=== PATIENT | male | born 1970 | race Caucasian/White ===

== ENCOUNTER 2025-02-11 03:01 | Observation (INO) ==
[2025-02-11] MEDS: SODIUM CHLORIDE 0.9% 1,000 ML IV ONE (03:13)
[2025-02-11] MEDS: NITROGLYCERIN 2% OINTMENT 30GM TUBE EXT ONE (03:21)
[2025-02-11 03:40] LABS: Hematocrit (blood only) 47.3 % (42.0-52.0); Hemoglobin 16.3 g/dL (14.0-18.0); Immature Granulocytes # (auto) 0.09 K/uL (0.01-0.20); Immature Granulocytes % (auto) 0.6 %; Mean Corpuscular Hemoglobin 33.1 pg (25.0-34.0); Mean Corpuscular Volume 96.1 fL (80.0-100.0); Platelet Count 182 K/uL (130-400); RDW Standard Deviation 50.8 fL (36.4-46.3); Red Blood Count 4.92 M/uL (4.70-6.10); White Blood Count 15.07 K/ul (4.8-10.8)
[2025-02-11 04:06] LABS: Anion Gap 10.0 (3-11); Carbon Dioxide 22.0 mmol/L (21-32); Chloride 102.0 mmol/L (98-107); Creatinine Clr Calc Pharmacy 68.4 ml/min; Glucose 114.0 mg/dl (70-99(Fasting)); Lipase 25.0 U/L (11-82); Magnesium 1.9 mg/dl (1.7-2.4); Potassium 3.9 mmol/L (3.5-5.1); Sodium 134.0 mmol/L (136-145)
[2025-02-11 04:09] LABS: Alanine Aminotransferase 14.0 U/L (7-52); Albumin Level 4.1 gm/dl (3.4-5.0); Alkaline Phosphatase 145.0 U/L (34-104); Blood Urea Nitrogen 12.0 mg/dl (6-23); Calcium 8.8 mg/dl (8.6-10.3)
[2025-02-11 04:14] LABS: Bilirubin,Total 0.4 mg/dl (0.2-1.0)
[2025-02-11 04:22] LABS: Albumin Globulin Ratio 1.2 (0.9-2); Globulin 3.5 gm/dl (2.5-4.0); Total Protein 7.6 gm/dl (6.0-8.3)
--- NOTE | 2025-02-11 05:08 | History & Physical Report ---
Date of Service February 11, 2025 Assessment & Plan (1) Syncope and collapse: Plan: 54-year-old male unassigned patient who does not go to doctors regularly presents with syncope and chronic chest pains. Patient lives around 35 miles from [place]. [place] he was in a strip club. States he drank about a quarter of beer. When he tried to go to bathroom he felt very hot and sweaty. Next thing he remembered , he was lying on the floor. It took some time for him to get up. Came to the ER. Currently resting comfortably and hemodynamically stable. Patient states he has chronic chest pains. He says he has chest pains going on for last 13 years. Today in the ER the nitro helped his chest pain. Says used to smoke 5 packs of cigarettes daily. Currently smoking 1 pack of cigars daily. Says he drinks alcohol only on the weekends, couple of beers. He denies any drug use. Has some headache. Vision is okay. No runny nose or sore throat. Has chronic cough. No nausea. No shortness of breath. No abdominal pain. Normal bowel and bladder movements. Denies any biting of the tongue or incontinence during the episode of syncope. Syncope and collapse Chronic chest pains Troponin negative. Chest x-ray okay Has leukocytosis but other labs okay Will follow serial cardiac enzymes, echo Will follow lipid profile and HbA1c levels Monitor on telemetry Consider cardiology for further recommendations Tobacco abuse Counseling DVT prophylaxis SCDs Disposition Telemetry Full code. History of Present Illness Chief Complaint: Syncope and chest pains Primary Care Provider: NO PCP 54-year-old male unassigned patient who does not go to doctors regularly presents with syncope and chronic chest pains. Patient lives around 35 miles from [place]. [place] he was in a strip club. States he drank about a quarter of beer. When he tried to go to bathroom he felt very hot and sweaty. Next thing he remembered , he was lying on the floor. It took some time for him to get up. Came to the ER. Currently resting comfortably and hemodynamically stable. Patient states he has chronic chest pains. He says he has chest pains going on for last 13 years. Today in the ER the nitro helped his chest pain. Says used to smoke 5 packs of cigarettes daily. Currently smoking 1 pack of cigars daily. Says he drinks alcohol only on the weekends, couple of beers. He denies any drug use. Has some headache. Vision is okay. No runny nose or sore throat. Has chronic cough. No nausea. No shortness of breath. No abdominal pain. Normal bowel and bladder movements. Denies any biting of the tongue or incontinence during the episode of syncope. Past medical history. Denies any medical history. Past surgical history. Denies surgeries Social history. Smoking 1 pack of cigarettes daily. Smoking since age of 12. Drinks couple of beers on the weekends. Denies any drug use. Family history. Mother had diabetes. Cancer in the family. He is Allergies Allergy/AdvReac Type Severity Reaction Status Date / Time No Known Allergies Allergy Unverified 12/26/17 06:33 Past Med/Surg History Problem List (Updated 02/11/25 @ 05:49 by Frandy Lennon PA-C) No significant past surgical history Atypical chest pain Syncope and collapse Family History (Updated 12/26/17 @ 06:39 by Zoya Daniel) Other No significant family history Social History (Updated 12/26/17 @ 06:39 by Zoya Daniel) Smoking Status: Current every day smoker Tobacco Type: Cigars Cigarettes Per Day: 1 pack/day; Hx Alcohol Use: Yes Alcohol type: beer Hx Substance Use: No Preferred Language: Yoruba Communication Ability: Effective Discharge Rn Required: No Beliefs That Will Affect Care: None Current Living Situation: Alone Other Information That Helps Us Care for You: No Feels Safe at Home: Yes Safety Concerns: Feels Safe At This Time Assistive Devices: None Review of Systems Review of Systems: All systems reviewed & are unremarkable except as noted in HPI & below Physical Exam Physical Exam: General- Not in distress Head- atraumatic Eyes- PERRL. ENT- oropharynx clear Neck- supple, no JVD. Lungs- clear to auscultation no wheezing or crackles Heart- regular rhythm; no murmur, no gallop. Abdomen- normal bowel sounds, soft, nontender, no distension Extremities- no pretibial edema, no erythema seen Neuro- alert, oriented PERRL, no facial palsy; no dysarthria; moves extremities Results & Data Results & Data Vital Signs (Past 12 Hours) Vital Signs Temp Pulse Resp BP Pulse Ox O2 Del Method 02/11/25 04:45 71 15 115/74 95 Room Air 02/11/25 04:15 74 18 117/74 92 Room Air 02/11/25 04:00 77 20 120/72 93 Room Air 02/11/25 03:45 80 23 126/77 94 Room Air 02/11/25 03:45 81 22 126/77 93 Room Air 02/11/25 03:21 85 23 123/76 93 Room Air 02/11/25 03:18 86 21 122/72 92 Room Air 02/11/25 03:12 Room Air 02/11/25 03:09 91 H 02/11/25 03:08 36.6 C 91 H 16 110/89 100 Room Air Diagnostic Findings Laboratory Results WBC 15.07 K/ul (4.8-10.8) H 02/11/25 03:12 RBC 4.92 M/uL (4.70-6.10) 02/11/25 03:12 Hgb 16.3 g/dL (14.0-18.0) 02/11/25 03:12 Hct 47.3 % (42.0-52.0) 02/11/25 03:12 MCV 96.1 fL (80.0-100.0) 02/11/25 03:12 MCH 33.1 pg (25.0-34.0) 02/11/25 03:12 MCHC 34.5 g/dL (32.0-36.0) 02/11/25 03:12 RDW Std Deviation 50.8 fL (36.4-46.3) H 02/11/25 03:12 RDW Coeff of Lynette 14.3 % (11.5-14.5) 02/11/25 03:12 Plt Count 182 K/uL (130-400) 02/11/25 03:12 MPV 9.8 fL (9.4-12.4) 02/11/25 03:12 Immature Gran % (Auto) 0.6 % 02/11/25 03:12 Neut % (Auto) 86.4 % 02/11/25 03:12 Lymph % (Auto) 5.2 % 02/11/25 03:12 [place] % (Auto) 7.0 % 02/11/25 03:12 Eos % (Auto) 0.4 % 02/11/25 03:12 Baso % (Auto) 0.4 % 02/11/25 03:12 Neut # (Auto) 13.01 K/uL (1.40-6.50) H 02/11/25 03:12 Lymph # (Auto) 0.79 K/uL (1.20-3.40) L 02/11/25 03:12 [place] # (Auto) 1.06 K/uL (0.11-0.59) H 02/11/25 03:12 Eos # (Auto) 0.06 K/uL (0.00-0.50) 02/11/25 03:12 Baso # (Auto) 0.06 K/uL (0.00-0.20) 02/11/25 03:12 Immature Gran # (Auto) 0.09 K/uL (0.01-0.20) 02/11/25 03:12 Sodium 134 mmol/L (136-145) L 02/11/25 03:12 Potassium 3.9 mmol/L (3.5-5.1) 02/11/25 03:12 Chloride 102 mmol/L (98-107) 02/11/25 03:12 Carbon Dioxide 22 mmol/L (21-32) 02/11/25 03:12 Anion Gap 10 (3-11) 02/11/25 03:12 BUN 12 mg/dl (6-23) 02/11/25 03:12 Creatinine 1.30 mg/dl (0.6-1.4) 02/11/25 03:12 Est Cr Clr Drug Dosing 68.4 ml/min 02/11/25 03:12 eGFR 64.88 02/11/25 03:12 BUN/Creatinine Ratio 9.2 (10-20) L 02/11/25 03:12 Glucose 114 mg/dl (70-99(Fasting)) H 02/11/25 03:12 Calcium 8.8 mg/dl (8.6-10.3) 02/11/25 03:12 Magnesium 1.9 mg/dl (1.7-2.4) 02/11/25 03:12 Total Bilirubin 0.4 mg/dl (0.2-1.0) 02/11/25 03:12 AST 21 U/L (13-39) 02/11/25 03:12 ALT 14 U/L (7-52) 02/11/25 03:12 Alkaline Phosphatase 145 U/L (34-104) H 02/11/25 03:12 Troponin I High Sens 11.5 pg/ml (0-20) 02/11/25 03:12 Total Protein 7.6 gm/dl (6.0-8.3) 02/11/25 03:12 Albumin 4.1 gm/dl (3.4-5.0) 02/11/25 03:12 Globulin 3.5 gm/dl (2.5-4.0) 02/11/25 03:12 Albumin/Globulin Ratio 1.2 (0.9-2) 02/11/25 03:12 Lipase 25 U/L (11-82) 02/11/25 03:12 Ethyl Alcohol mg/dL < 10.0 mg/dl (<10.0) 02/11/25 03:11 Code Status & VTE Plan VTE Prophylaxis Plan VTE Prophylaxis will be ordered: Yes
--- NOTE | 2025-02-11 05:18 | XRay Report ---
EXAM: XR chest 1V portable CLINICAL HISTORY: Chest pain, nonspecific. TECHNIQUE: Radiograph of chest was acquired. COMPARISON: 12/26/2017 06:43:55 [employer]. FINDINGS: The lungs are clear and well-expanded with no pulmonary infiltrate or pleural effusion. The cardiac silhouette is borderline enlarged. Right hilum appears prominent. No acute osseous abnormality. IMPRESSION: 1. Borderline cardiomegaly with prominent right hilar shadows - Interval appearance of cardiomegaly with more prominent right hilar shadow compared to prior- Needs further evaluation with 2D cardiac echogram. Electronically signed by Jimmie Schreiber 02-11-2025 05:17 AM
[2025-02-11 05:29] LABS: Appearance Urine Clear (Clear); Bacteria Urine Automated None Seen (None Seen); Cast Urine Automated 0-2 /lpf (0-2); Epithelial Cell Urine Auto 0-2 /hpf (0-2); Glucose Urine UA Negative (Negative); RBC Urine Automated 0-2 /hpf (0-2); WBC Urine Automated 0-5 /hpf (0-5)
--- NOTE | 2025-02-11 05:51 | Emergency Department Note ---
History of Present Illness General Chief complaint: Chest Pain Stated complaint: chest pain Time Seen by Provider: 02/11/25 03:02 History of Present Illness Maximum Pain Intensity: 6 This is a 54-year-old male presenting to the emergency department for evaluation of chest pain and possible syncopal episode. Patient was at [employer], a local [employer], when he states that his chest began feeling strange and he became very diaphoretic. The next thing the patient recalls is that he awoke on the floor. EMS was contacted and patient had persistent chest pain. He was given 324 mg aspirin as well as 2 doses of nitroglycerin prehospital. Patient states the nitroglycerin brought his discomfort from an 8 to a 6. Patient does not typically follow with a family doctor and is not on any chronic medications. He smokes a pack of CIGARS on a daily basis, and has done this for several years. He does not have any known history of cardiopulmonary disease or diabetes. He states that family does have a history of cancer. Patient has not had any travel history. No lightheadedness or dizziness. Allergies Allergy/AdvReac Type Severity Reaction Status Date / Time No Known Allergies Allergy Unverified 12/26/17 06:33 Past Med/Surg History Problem List (Updated 02/11/25 @ 21:18 by Frandy Lennon PA-C) Tobacco abuse Chest pain No significant past surgical history Atypical chest pain (Acute) Syncope and collapse (Acute) Family History (Updated 12/26/17 @ 06:39 by Zoya Daniel) Other No significant family history Social History (Updated 12/26/17 @ 06:39 by Zoya Daniel) Smoking Status: Current every day smoker Tobacco Type: Cigars Cigarettes Per Day: 1 pack/day; Hx Alcohol Use: Yes Alcohol type: beer Hx Substance Use: No Preferred Language: Icelandic Communication Ability: Effective Instructor Looping Required: No Beliefs That Will Affect Care: None Current Living Situation: Alone Other Information That Helps Us Care for You: No Feels Safe at Home: Yes Safety Concerns: Feels Safe At This Time Assistive Devices: None Review of Systems A total of 10 systems reviewed and were otherwise negative Physical Exam Vital Signs Vital Signs - 24 hr 02/11/25 03:08 02/11/25 03:09 02/11/25 03:12 Temperature 36.6 C Temperature Source Oral Pulse Rate 91 H 91 H Pulse Rate from SpO2 Sensor Pulse Rhythm Regular Respiratory Rate 16 Respiratory Effort / Characteristics Non-Labored Respiratory Depth Normal Blood Pressure 110/89 Blood Pressure Mean 96 Pulse Oximetry 100 Oxygen Delivery Method Room Air Room Air Sepsis Recent Fever Within 48 Hours No Sepsis New/Unexplained Change in Mental Status No Sepsis Action Taken by Nursing No Action Required 02/11/25 03:18 02/11/25 03:21 02/11/25 03:45 Temperature Temperature Source Pulse Rate 86 85 81 Pulse Rate from SpO2 Sensor 86 86 81 Pulse Rhythm Respiratory Rate 21 23 22 Respiratory Effort / Characteristics Respiratory Depth Blood Pressure 122/72 123/76 126/77 Blood Pressure Mean 91 91 93 Pulse Oximetry 92 93 93 Oxygen Delivery Method Room Air Room Air Room Air Sepsis Recent Fever Within 48 Hours Sepsis New/Unexplained Change in Mental Status Sepsis Action Taken by Nursing 02/11/25 03:45 02/11/25 04:00 02/11/25 04:15 Temperature Temperature Source Pulse Rate 80 77 74 Pulse Rate from SpO2 Sensor 80 76 75 Pulse Rhythm Respiratory Rate 23 20 18 Respiratory Effort / Characteristics Respiratory Depth Blood Pressure 126/77 120/72 117/74 Blood Pressure Mean 96 89 94 Pulse Oximetry 94 93 92 Oxygen Delivery Method Room Air Room Air Room Air Sepsis Recent Fever Within 48 Hours Sepsis New/Unexplained Change in Mental Status Sepsis Action Taken by Nursing 02/11/25 04:45 02/11/25 04:45 Temperature Temperature Source Pulse Rate 71 72 Pulse Rate from SpO2 Sensor 74 73 Pulse Rhythm Respiratory Rate 15 20 Respiratory Effort / Characteristics Respiratory Depth Blood Pressure 115/74 115/74 Blood Pressure Mean 90 90 Pulse Oximetry 95 94 Oxygen Delivery Method Room Air Room Air Sepsis Recent Fever Within 48 Hours Sepsis New/Unexplained Change in Mental Status Sepsis Action Taken by Nursing VITALS: Vitals are noted on the nurse's note and reviewed by myself. Vital signs stable. GENERAL: White male who appears older than his stated age. HEAD: Normocephalic atraumatic. NECK: Supple without nuchal rigidity. No lymphadenopathy. No thyromegaly. Cervical spine is nontender. HEART: Regular rate and rhythm without murmurs gallops or rubs. LUNGS: Clear to auscultation bilaterally without wheezes, rales or rhonchi. No retractions or accessory muscle use. ABDOMEN: Positive normal bowel sounds x 4. Soft, nontender, without masses or organomegaly. No guarding or rebound tenderness. MUSCULOSKELETAL: No muscle atrophy, erythema, or edema noted. Full range of motion in all extremities. Course Administered Medications Acetaminophen (Acetaminophen 325 Mg Tab) 650 mg PO Q4H PRN PRN Reason: Pain or Fever Stop: 03/13/25 06:09 Last Admin: 02/11/25 20:49 Dose: 650 mg Documented By: DOMINIQUE Aspirin (Aspirin 81 Mg Ectab) 81 mg PO QAM DIANA Stop: 03/13/25 12:59 Last Admin: 02/11/25 13:31 Dose: 81 mg Documented By: Atorvastatin Calcium (Atorvastatin 20 Mg Tab) 20 mg PO QAM DIANA Stop: 03/13/25 12:59 Last Admin: 02/11/25 13:31 Dose: 20 mg Documented By: Sodium Chloride (Nss) 1,000 mls @ 100 mls/hr IV .Q10H DIANA Stop: 02/14/25 06:09 Last Admin: 02/11/25 16:53 Dose: 100 mls/hr Documented By: Infusion: 02/11/25 16:35 Dose: Infused Documented By: Admin: 02/11/25 06:35 Dose: 100 mls/hr Documented By: DOMINIQUE Discontinued Medications Sodium Chloride (Nss) 1,000 mls @ 999 mls/hr IV .Q1H1M ONE Stop: 02/11/25 04:11 Last Infusion: 02/11/25 04:14 Dose: Infused Documented By: Admin: 02/11/25 03:13 Dose: 999 mls/hr Documented By: CASH Ioversol (Optiray 320 125ml) 119 ml IV ONCE ONE Stop: 02/11/25 11:05 Last Admin: 02/11/25 11:05 Dose: 119 ml Documented By: FRANCHESKA Nitroglycerin (Nitroglycerin 2% Ointment 30gm Tube) 1 inch EXT NOW ONE Stop: 02/11/25 03:14 Last Admin: 02/11/25 03:21 Dose: 1 inch Documented By: [facility] Medical Decision Making Laboratory Data 02/11/25 08:57 02/11/25 08:57 Lab Results 02/11/25 02/11/25 02/11/25 Range/Units 03:11 03:12 05:03 WBC 15.07 H (4.8-10.8) K/ul RBC 4.92 (4.70-6.10) M/uL Hgb 16.3 (14.0-18.0) g/dL Hct 47.3 (42.0-52.0) % MCV 96.1 (80.0-100.0) fL MCH 33.1 (25.0-34.0) pg MCHC 34.5 (32.0-36.0) g/dL RDW Std Deviation 50.8 H (36.4-46.3) fL RDW Coeff of Lynette 14.3 (11.5-14.5) % Plt Count 182 (130-400) K/uL MPV 9.8 (9.4-12.4) fL Immature Gran % (Auto) 0.6 % Neut % (Auto) 86.4 % Lymph % (Auto) 5.2 % [place] % (Auto) 7.0 % Eos % (Auto) 0.4 % Baso % (Auto) 0.4 % Neut # (Auto) 13.01 H (1.40-6.50) K/uL Lymph # (Auto) 0.79 L (1.20-3.40) K/uL [place] # (Auto) 1.06 H (0.11-0.59) K/uL Eos # (Auto) 0.06 (0.00-0.50) K/uL Baso # (Auto) 0.06 (0.00-0.20) K/uL Immature Gran # (Auto) 0.09 (0.01-0.20) K/uL Sodium 134 L (136-145) mmol/L Potassium 3.9 (3.5-5.1) mmol/L Chloride 102 (98-107) mmol/L Carbon Dioxide 22 (21-32) mmol/L Anion Gap 10 (3-11) BUN 12 (6-23) mg/dl Creatinine 1.30 (0.6-1.4) mg/dl Est Cr Clr Drug Dosing 68.4 ml/min eGFR 64.88 BUN/Creatinine Ratio 9.2 L (10-20) Glucose 114 H (70-99(Fasting)) mg/dl Calcium 8.8 (8.6-10.3) mg/dl Magnesium 1.9 (1.7-2.4) mg/dl Total Bilirubin 0.4 (0.2-1.0) mg/dl AST 21 (13-39) U/L ALT 14 (7-52) U/L Alkaline Phosphatase 145 H (34-104) U/L Troponin I High Sens 11.5 (0-20) pg/ml Total Protein 7.6 (6.0-8.3) gm/dl Albumin 4.1 (3.4-5.0) gm/dl Globulin 3.5 (2.5-4.0) gm/dl Albumin/Globulin Ratio 1.2 (0.9-2) Lipase 25 (11-82) U/L Urine Color Yellow Urine Appearance Clear (Clear) Urine pH 5.5 (4.5-7.5) Ur Specific [place] 1.011 (1.000-1.030) Urine Protein Negative (Negative) Urine Glucose (UA) Negative (Negative) Urine Ketones Negative (Negative) Urine Blood Trace H (Negative) Urine Nitrite Negative (Negative) Urine Bilirubin Negative (Negative) Urine Urobilinogen Negative (Negative) Ur Leukocyte Esterase Negative (Negative) Urine WBC (Auto) 0-5 (0-5) /hpf Urine RBC (Auto) 0-2 (0-2) /hpf U Hyaline Cast (Auto) 0-2 (0-2) /lpf U Epithel Cells (Auto) 0-2 (0-2) /hpf Urine Bacteria (Auto) None Seen (None Seen) Urine Comment Urine Opiates Screen Neg (Neg) Ur Methadone, Qual Neg (Neg) Urine Fentanyl Screen Neg (Neg) Urine Barbiturates Neg (Neg) Ur Phencyclidine (PCP) Neg (Neg) U Amphetamin/Meth Scrn Neg (Neg) MDMA (Ecstasy) Screen Neg (Neg) U Benzodiazepines Scrn Neg (Neg) Ur Cocaine Metabolite Neg (Neg) U Marijuana (THC) Screen Neg (Neg) Ethyl Alcohol mg/dL < 10.0 (<10.0) mg/dl Imaging Data Radiologist's Impression: Chest X-Ray 02/11/25 03:12 EXAM: XR chest 1V portable CLINICAL HISTORY: Chest pain, nonspecific. TECHNIQUE: Radiograph of chest was acquired. COMPARISON: 12/26/2017 06:43:[address]. FINDINGS: The lungs are clear and well-expanded with no pulmonary infiltrate or pleural effusion. The cardiac silhouette is borderline enlarged. Right hilum appears prominent. No acute osseous abnormality. IMPRESSION: 1. Borderline cardiomegaly with prominent right hilar shadows - Interval appearance of cardiomegaly with more prominent right hilar shadow compared to prior- Needs further evaluation with 2D cardiac echogram. Electronically signed by Jimmie Schreiber 02-11-2025 05:17 AM MDM Narrative Physical exam and history were performed. Nursing notes, EMR, and Medication List were personally reviewed. No social concerns were identified as barriers to patients care. History was provided by the Patient and EMS. Patient appears to have had a syncopal episode this evening with subsequent chest pain. Patient does not typically seek medical attention. IV access was established and labs were obtained. He was hydrated normal saline and given additional Nitropaste here in the ER which did seem to help many of his symptoms. An order was placed for continuous cardiac monitoring. The monitor shows a rate of 68 with normal sinus rhythm. Patient's blood work is as above and was reviewed. He does not have a significant elevated white blood cell count, gross anemia, bandemia, or significant electrolyte imbalance. Transaminases not diagnostic. Troponin x 1 negative. Chest x-ray independently reviewed by myself and radiology showing no obvious acute process to account for the patient's symptoms. Escalation of care was considered, and is felt to be necessary. He seems to have gotten relief of chest discomfort after nitro. He has concerning history as he does not seek medical attention and has a very significant nicotine/tobacco use exposure. Patient case was discussed with the on-call hospitalist team who agreed to evaluate the patient here in the ER. Please see their dictation for further patient course, plan, disposition. The chart was completed utilizing [employer] Speech Voice Recognition Software. Grammatical errors, random word insertions, pronoun errors, and incomplete sentences are an occasional consequence of this system due to software limitations, ambient noise, and hardware issues. Any formal questions or concerns about the content, text, or information contained within the body of this dictation should be directly addressed to the provider for clarification. Impression & Plan Syncope and collapse, Atypical chest pain Discharge Plan Visit Data Chief Complaint: Chest Pain Stated Complaint: chest pain ED Provider: Rj Tejeda ED Midlevel Provider: Frandy Lennon Discharge Problem: Syncope and collapse, Atypical chest pain Patient Disposition: Admitted As Inpatient Condition: Fair Discharge Instructions Interventions: ED Discharge Assessment Last Done: 02/11/25 05:45
[2025-02-11] MEDS ORDERED: NITROGLYCERIN SL 0.4 MG/TAB TAB SL PRN (06:10)
[2025-02-11] MEDS ORDERED: POLYETHYLENE (MIRALAX) 17 GM PACK PO PRN (06:10)
[2025-02-11] MEDS: SODIUM CHLORIDE 0.9% 1,000 ML IV SCH (06:35)
[2025-02-11 09:10] LABS: Hematocrit (blood only) 46.0 % (42.0-52.0); Hemoglobin 15.8 g/dL (14.0-18.0); Immature Granulocytes # (auto) 0.02 K/uL (0.01-0.20); Immature Granulocytes % (auto) 0.2 %; Mean Corpuscular Hemoglobin 32.7 pg (25.0-34.0); Mean Corpuscular Volume 95.2 fL (80.0-100.0); Platelet Count 165 K/uL (130-400); RDW Standard Deviation 50.7 fL (36.4-46.3); Red Blood Count 4.83 M/uL (4.70-6.10); White Blood Count 8.87 K/ul (4.8-10.8)
[2025-02-11 09:25] LABS: Anion Gap 5.0 (3-11); Blood Urea Nitrogen 10.0 mg/dl (6-23); Calcium 8.5 mg/dl (8.6-10.3); Carbon Dioxide 26.0 mmol/L (21-32); Chloride 108.0 mmol/L (98-107); Cholesterol 156.0 mg/dl (0-200); Creatinine Clr Calc Pharmacy 83.1 ml/min; Glucose 105.0 mg/dl (70-99(Fasting)); HDL Cholesterol 23.0 mg/dl; Magnesium 2.0 mg/dl (1.7-2.4); Potassium 4.1 mmol/L (3.5-5.1); Sodium 139.0 mmol/L (136-145); Triglycerides 117.0 mg/dl (0-150)
[2025-02-11 09:33] LABS: Hemoglobin A1C 6.0 % (4.5-5.6)
[2025-02-11] MEDS: OPTIRAY 320 125ml IV ONE (11:05)
--- NOTE | 2025-02-11 11:09 | Cardiology Consultation ---
Date of Consultation February 11, 2025 Assessment & Plan (1) Syncope and collapse: (2) Chest pain: (3) Tobacco abuse: Plan Patient is a 54 year old male who does not seek medical care often, no recent doctors visits, and history of chronic tobacco abuse, admitted after a syncopal event last night associated with chest heaviness and diaphoresis. No cardiac history. HS troponin negative x2 since admission EKG without acute ischemic changes Echo with preserved LVEF Symptoms improved with nitro patch on admission. No arrhythmias on telemetry. He does admit to history of "syncope" but has not sought medical care. He does admit to frequent chest pain for "years" but also has not been evaluated. He does have risk factors for underlying CAD - family history (mother with stents), tobacco abuse, Mildly elevated A1C noted- borderline DM Recommendations: Start ASA 81 mg daily Start statin atorvastatin 20 mg daily BP controlled currently. No current chest pain. SL nitro with recurrent symptoms Continue on telemetry. Echo unremarkable. Recommend dobutamine stress echo Wednesday morning. NPO at midnight. Outpatient ZIO monitor to also be arranged. Further recommendations pending discussion and evaluation with Dr. Jin. I spent a total of 60 minutes on the date of service in preparation, delivery, and documentation of the care provided to this patient, excluding any time spent in the performance of separately billed services. Tasneem Aguiar PA-C Department of Cardiology, [facility] This chart was completed in part utilizing Speech Voice Recognition Software. Grammatical errors, random word insertions, pronoun errors, and incomplete sentences are an occasional consequence of this system due to software limitations, ambient noise, and hardware issues. Any formal questions or concerns about the content, text, or information contained within the body of this dictation should be directly addressed to the provider for clarification. Supervising Physician Co-Signing Physician Notes Patient seen and examined. Past medical history, surgical history, social history and family history have been reviewed. The medical record and all the above studies have been reviewed. Case DW CHETAN including management. 02/11/25 ECHO Interpretation Summary Left ventricular systolic function is normal. Left Ventricular Ejection Fraction = 55-60%. Grade I diastolic dysfunction, (abnormal relaxation pattern). Mild to moderate aortic regurgitation. Mild pulmonic valvular regurgitation. There is mild mitral regurgitation. There is mild tricuspid regurgitation. Right ventricular systolic pressure is normal. Syncope Chest Pain - OH R/O Active smoker Dyslipidemia +Family history Recommendations: Stress ECHO in AM NPO post MN Statin ASA DVT proph telemetry OP ZIO History of Present Illness Reason for Consultation: Syncope; Chest pain Requesting Physician: Radha Hospitalist Attending Physician: Jayne Shook MD History of Present Illness Patient is a 54 year old male who presented to [facility] after a syncopal episode while at a strip club last night and after having reportedly 1 beer. He reports feeling "hot and sweaty", and then the next thing he knew he was on the floor. EMS was summoned and he came to the ER for evaluation. Patient reports he does not go to the doctors regularly. Is unsure of his last tests, labs. He denies history of cardiovascular issues/problems. He smokes 1-2 PPD and drinks beer on the weekends. He reports chronic chest pain at rest or with exertion. This has been going on for "years" but he admits he has never sought care or evaluation. Recently his chest pain has been more frequent. Last night he reports chest heaviness, around the time of his syncopal episode. Like "someone was sitting on his chest". EKG on arrival demonstrated NSR, without acute ischemic changes. HS troponin negative x2. D.Dimer was elevated, but chest CTA was negative for PE. He was initially treated with nitro patch and his symptoms resolved. BP has been well controlled since admission. At time of consult, patient resting in bed. Reports no syncopal episodes since admission and no dizziness. No current chest pain. Resting comfortably. No arrhythmias on telemetry. 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 Operator Required: No Beliefs That Will Affect Care: None Current Living Situation: Alone Other Information That Helps Us Care for You: No Feels Safe at Home: Yes Safety Concerns: Feels Safe At This Time Assistive Devices: None Review of Systems Review of Systems: All systems reviewed & are unremarkable except as noted in HPI & below Physical Exam Constitutional: WD/WN, vitals as above + disheveled; no acute distress Neck: normal visual inspection Respiratory: normal respiratory effort; no cough Auscultation: + diminished lung sounds and + wheezes Cardiovascular: Rate/Rhythm: regular rate and regular rhythm Heart Sounds: no murmur Vessels: no JVD Extremities: no edema Gastrointestinal (Abdomen): normal bowel sounds, soft, nontender, no hepatosplenomegaly Neurologic: PERRL, EOMI, accommodation nl, no face palsy, no dysarthria Psychiatric: A+Ox3, euthymic affect Results & Data Vital Signs (Past 12 Hours) Vital Signs Temp Pulse Pulse Resp BP BP Pulse Ox 02/11/25 07:33 02/11/25 07:26 36.3 C L 56 L 21 121/65 95 02/11/25 06:06 36.4 C L 64 16 138/79 95 02/11/25 06:05 61 02/11/25 04:45 72 20 115/74 94 02/11/25 04:45 71 15 115/74 95 02/11/25 04:15 74 18 117/74 92 02/11/25 04:00 77 20 120/72 93 02/11/25 03:45 80 23 126/77 94 02/11/25 03:45 81 22 126/77 93 02/11/25 03:21 85 23 123/76 93 02/11/25 03:18 86 21 122/72 92 02/11/25 03:12 02/11/25 03:09 91 H 02/11/25 03:08 36.6 C 91 H 16 110/89 100 O2 Del Method 02/11/25 07:33 Room Air 02/11/25 07:26 Room Air 02/11/25 06:06 Room Air 02/11/25 06:05 02/11/25 04:45 Room Air 02/11/25 04:45 Room Air 02/11/25 04:15 Room Air 02/11/25 04:00 Room Air 02/11/25 03:45 Room Air 02/11/25 03:45 Room Air 02/11/25 03:21 Room Air 02/11/25 03:18 Room Air 02/11/25 03:12 Room Air 02/11/25 03:09 02/11/25 03:08 Room Air Laboratory Results Cardiac Enzymes 02/11/25 02/11/25 Range/Units 03:12 08:57 AST 21 (13-39) U/L Troponin I High Sens 11.5 14.1 (0-20) pg/ml Lipids 02/11/25 Range/Units 08:57 Triglycerides 117 (0-150) mg/dl Cholesterol 156 (0-200) mg/dl HDL Cholesterol 23 mg/dl Cholesterol/HDL Ratio 6.8 H (0-5) CBC 02/11/25 02/11/25 Range/Units 03:12 08:57 WBC 15.07 H 8.87 (4.8-10.8) K/ul RBC 4.92 4.83 (4.70-6.10) M/uL Hgb 16.3 15.8 (14.0-18.0) g/dL Hct 47.3 46.0 (42.0-52.0) % Plt Count 182 165 (130-400) K/uL Neut # (Auto) 13.01 H 7.04 H (1.40-6.50) K/uL Lymph # (Auto) 0.79 L 1.10 L (1.20-3.40) K/uL Webb # (Auto) 1.06 H 0.63 H (0.11-0.59) K/uL Eos # (Auto) 0.06 0.03 (0.00-0.50) K/uL Baso # (Auto) 0.06 0.05 (0.00-0.20) K/uL Comprehensive Metabolic Panel 02/11/25 02/11/25 Range/Units 03:12 08:57 Sodium 134 L 139 (136-145) mmol/L Potassium 3.9 4.1 (3.5-5.1) mmol/L Chloride 102 108 H (98-107) mmol/L Carbon Dioxide 22 26 (21-32) mmol/L BUN 12 10 (6-23) mg/dl Creatinine 1.30 1.07 (0.6-1.4) mg/dl Glucose 114 H 105 H (70-99(Fasting)) mg/dl Calcium 8.8 8.5 L (8.6-10.3) mg/dl AST 21 (13-39) U/L ALT 14 (7-52) U/L Alkaline Phosphatase 145 H (34-104) U/L Total Protein 7.6 (6.0-8.3) gm/dl Albumin 4.1 (3.4-5.0) gm/dl Intake and Output 02/10/25 02/11/25 02/11/25 22:59 06:59 14:59 Intake Total 1000 / 1000 Output Total 500 / 500 Balance 1000 / 1000 -500 / -500 Intake: IV 1000 / 1000 Sodium Chloride 0.9% 1,000 ml @ 1000 / 1000 999 mls/hr IV .Q1H1M ONE Rx#: [id number] Output: Urine 500 / 500 Other: Other Intake Source npo # Unmeasured Voids 1 Weight 87.1 kg Weight Measurement Method Patient Lift Scale Diagnostic Findings Telemetry reviewed: NSR in the 70-80's EKG reviewed: NSR, normal EKG no acute ischemic changes Echo report reviewed from today: Normal LVEF at 55-60% Grade I diastolic dysfunction Mild to moderate AI Mild pulm valve regurg Mild MR Mild TR RV systolic pressure is normal Chest X-Ray 02/11/25 03:12 EXAM: XR chest 1V portable CLINICAL HISTORY: Chest pain, nonspecific. TECHNIQUE: Radiograph of chest was acquired. COMPARISON: 12/26/2017 06:43:55 [employer]. FINDINGS: The lungs are clear and well-expanded with no pulmonary infiltrate or pleural effusion. The cardiac silhouette is borderline enlarged. Right hilum appears prominent. No acute osseous abnormality. IMPRESSION: 1. Borderline cardiomegaly with prominent right hilar shadows - Interval appearance of cardiomegaly with more prominent right hilar shadow compared to prior- Needs further evaluation with 2D cardiac echogram. Electronically signed by Jimmie Schreiber 02-11-2025 05:17 AM Chest CTA 02/11/25 10:23 Exam: CT angiogram of the chest. Exam reason: PE. Comparison: No prior examinations available for comparison. Technique: Multiple transvaginal images of the chest were obtained using 1.25 mm axial slice thickness after the intravenous administration of contrast. Images were acquired in the arterial phase of contrast distribution and also reconstructed in the coronal MIP. Findings: There is no evidence of acute pulmonary embolus to the level of the proximal segmental branches of the pulmonary arteries. No pulmonary parenchymal abnormalities are seen. There is no pneumothorax. There are no pleural or pericardial effusions. The heart and great vessels are within normal limits. No endobronchial lesions are identified. No acute bony abnormalities are noted. The visualized portions of the upper abdomen are unremarkable. Impression: 1. No evidence of acute pulmonary embolus to the level of the proximal segmental branches of the pulmonary arteries. Electronically signed by Bernard Guy 02-11-2025 11:29 AM Medications Administered Current Inpatient Medications Acetaminophen (Acetaminophen 325 Mg Tab) 650 mg PO Q4H PRN PRN Reason: Pain or Fever Stop: 03/13/25 06:09 Sodium Chloride (Nss) 1,000 mls @ 100 mls/hr IV .Q10H DIANA Stop: 02/14/25 06:09 Last Admin: 02/11/25 06:35 Dose: 100 mls/hr Nitroglycerin (Nitroglycerin Sl 0.4 Mg/Tab Tab) 0.4 mg SL Q5M PRN PRN Reason: Chest Pain Stop: 03/13/25 06:09 Polyethylene Glycol (Polyethylene (Miralax) 17 Gm Pack) 17 gm PO DAILY PRN PRN Reason: Constipation Stop: 03/13/25 06:09 PG Care Time/CCT Total # of Minutes Spent Total Time Spent with Patient: Total time spent is greater than 50% in coordination of care (as documented) at patient's floor/unit and/or counseling patient: 60 minutes Coding Level of Care Code 05637 IN/OBS CONSULT LVL 4,60M Diagnoses Syncope and collapse R55 Chest pain, unspecified type R07.9 Chest pain type: unspecified Tobacco abuse Z72.0 (2) Chest pain Chest pain type: unspecified Qualified Code(s): R07.9 - Chest pain, unspecified
--- NOTE | 2025-02-11 11:16 | Communication Note ---
Date of Service: February 11, 2025 Reports chronic intermittent central chest pain that last hours over the past 13 years, not referred, no known relieving or aggravating factors, not associated with N/V/dizziness Had an episode of syncope at the [employer] club. He stated he was worried if his drink was spiked as he had similar episode there months ago. However he did acknowledge other episode of syncope over the years Does not follow up with a Dr Denied illicit drug use DDimer 550. CT PE was negative for PE F/u TTE, cards eval Will need PCP set up. Will need zio patch outpatient Check UDS Other plans as detailed in H/P this AM
--- NOTE | 2025-02-11 11:29 | CT Scan Report ---
Exam: CT angiogram of the chest. Exam reason: PE. Comparison: No prior examinations available for comparison. Technique: Multiple transvaginal images of the chest were obtained using 1.25 mm axial slice thickness after the intravenous administration of contrast. Images were acquired in the arterial phase of contrast distribution and also reconstructed in the coronal MIP. Findings: There is no evidence of acute pulmonary embolus to the level of the proximal segmental branches of the pulmonary arteries. No pulmonary parenchymal abnormalities are seen. There is no pneumothorax. There are no pleural or pericardial effusions. The heart and great vessels are within normal limits. No endobronchial lesions are identified. No acute bony abnormalities are noted. The visualized portions of the upper abdomen are unremarkable. Impression: 1. No evidence of acute pulmonary embolus to the level of the proximal segmental branches of the pulmonary arteries. Electronically signed by Bernard Guy 02-11-2025 11:29 AM
[2025-02-11 11:57] LABS: Amphetamines+Metham, Urine Neg (Neg); MDMA (Ecstacy), Urine Neg (Neg); Marijuana, Urine Neg (Neg)
--- NOTE | 2025-02-11 12:29 | XCELERA ---
[id number] \\[id number]
[2025-02-11] MEDS: ATORVASTATIN 20 MG TAB PO SCH (13:31)
[2025-02-11] MEDS: ASPIRIN 81 MG ECTAB PO SCH (13:31)
--- NOTE | 2025-02-11 20:09 | Electrocardiogram Report ---
Test Reason : Blood Pressure : */* mmHG Vent. Rate : 88 BPM Atrial Rate : 88 BPM P-R Int : 168 ms QRS Dur : 94 ms QT Int : 362 ms P-R-T Axes : 65 -27 50 degrees QTcB Int : 438 ms Normal sinus rhythm Normal ECG When compared with ECG of 26-Dec-2017 06:44, QRS axis Shifted left Confirmed by Daniela Rivero (Carlotta) on 02/11/2025 8:09:27 PM Referred By: REFERRED SELF Confirmed By: Daniela Rivero
[2025-02-11] MEDS: ACETAMINOPHEN 325 MG TAB PO PRN (20:49)
[2025-02-12 07:45] VITALS: TEMP 98.1
--- NOTE | 2025-02-12 11:25 | Cardiology Progress Note ---
Date of Service February 12, 2025 Assessment & Plan (1) Syncope and collapse: (2) Chest pain: (3) Tobacco abuse: Plan Patient is a 54 year old male who does not seek medical care often, no recent doctors visits, and history of chronic tobacco abuse, admitted after a syncopal event last night associated with chest heaviness and diaphoresis. No cardiac history. Patient describes having had episodic chest pains for 15 years. EKG without evidence of ischemia. Serial HS troponin levels were normal. LDL cholesterol 110 mg /dl. CTA chest negative for pulmonary embolism. -Patient went on to have a dobutamine stress echocardiogram. Images were of excellent technically quality. Normal echocardiographic response to pharmacologic stress. Normal EKG response to pharmacologic stress. Equivocal symptoms reported by patient at peak stress and early in the post stress recovery interval with focal chest pain a location where US probe was located for the apical images. Symptoms resolved spontaneously and were atypical in character for angina. -Discussed options such as cardiac catheterization or ongoing observation and outpatient follow up. Patient declines cardiac catheterization. Agreeable to follow up with [facility]. -Given concerns of adherence would discharge without new cardiac medications. Shiraz Rios DO Admission and Anticipated Discharge Date Admission Date: February 11, 2025 Subjective Patient seen in cardiology follow-up prior to, during, and after dobutamine st ress echocardiogram. Patient notes feeling well at the onset of the test. Physical Exam Constitutional: WD/WN, vitals as above + disheveled; no acute distress Neck: normal visual inspection Respiratory: normal respiratory effort; no cough Auscultation: + diminished lung sounds and + wheezes Cardiovascular: Rate/Rhythm: regular rate and regular rhythm Heart Sounds: no murmur Vessels: no JVD Extremities: no edema Gastrointestinal (Abdomen): normal bowel sounds, soft, nontender, no hepatosplenomegaly Neurologic: PERRL, EOMI, accommodation nl, no face palsy, no dysarthria Psychiatric: A+Ox3, euthymic affect Results & Data Vital Signs (Past 12 Hours) Vital Signs Temp Pulse Pulse Resp BP Pulse Ox O2 Del Method 02/12/25 08:00 61 02/12/25 07:24 36.7 C 56 L 16 137/70 91 Room Air 02/12/25 04:11 36.5 C 70 22 137/75 95 Room Air 02/11/25 23:28 36.5 C 57 L 18 145/78 H 95 Room Air PG Care Time/CCT Total # of Minutes Spent Total Time Spent with Patient: Total time spent is greater than 50% in coordination of care (as documented) at patient's floor/unit and/or counseling patient: Coding Level of Care Code 02399 SUB INP/OBS CARE 2/35MIN Diagnoses Syncope and collapse R55 Chest pain, unspecified type R07.9 Chest pain type: unspecified Tobacco abuse Z72.0 (2) Chest pain Chest pain type: unspecified Qualified Code(s): R07.9 - Chest pain, unspecifi ed
[2025-02-12] MEDS: ATROPINE SULFATE 0.1 MG/ML 10ML SYR IV ONE (11:29)
[2025-02-12] MEDS: DOBUTamine HCL 12.5 MG/ML 20 ML VIAL IV ONE (11:30)
[2025-02-12] MEDS: METOPROLOL TARTRATE 1 MG/ML VIAL IV ONE (11:31)
[2025-02-12 11:44] VITALS: BP 136/80; RESP 18; O2SAT 94
--- NOTE | 2025-02-12 12:55 | Electrocardiogram Report ---
Test Reason : Blood Pressure : */* mmHG Vent. Rate : 57 BPM Atrial Rate : 57 BPM P-R Int : 172 ms QRS Dur : 98 ms QT Int : 416 ms P-R-T Axes : 67 0 26 degrees QTcB Int : 404 ms Sinus bradycardia Possible Left atrial enlargement Borderline ECG When compared with ECG of 11-Feb-2025 03:07, Vent. rate has decreased by 31 bpm Confirmed by Davdi Ojeda ([id number]) on 02/12/2025 12:54:42 PM Referred By: REFERRED SELF Confirmed By: David Ojeda
--- NOTE | 2025-02-12 13:22 | XCELERA ---
[id number] \\[id number]
--- NOTE | 2025-02-12 14:55 | Hospitalist Progress Note ---
Date of Service February 12, 2025 Assessment & Plan (1) Syncope and collapse: Plan: 54-year-old male unassigned patient who does not go to doctors regularly presents with syncope and chronic chest pains. Reports chronic intermittent central chest pain that last hours over the past 13 years, not referred, no known relieving or aggravating factors, not associated with N/V/dizziness Had an episode of syncope at the [employer]. He stated he was worried if his drink was spiked as he had similar episode there months ago. Syncope and collapse Chronic chest pains Troponin negative. LDL cholesterol was 110 EKG without evidence of ischemia Chest x-ray did not show acute abnormalities CTA chest was negative for PE UDS was negative TTE noted EF 55-60%, mild to mod AR, mild MR, mild TR, Grade I DD Was evaluated by Cardiology and had Dobutamine stress echo Dobutamine stress echo noted no objective evidence of resting or inducible ischemia. Equivocal symptoms reported by patient at peak stress and early in the post stress recovery interval with focal chest pain a location where US probe was located for the apical images. Chest pain resolved spontaneously Tip Printer discussed cardiac catheterization with him which he declined. Outpatient Cardiology follow up Tobacco abuse Counseled regarding smoking cessation Admission and Anticipated Discharge Date Admission Date: February 11, 2025 Subjective Patient seen and examined Reports chronic central chest pain No other complaints at this time Physical Exam Constitutional: + well hydrated; no acute distress Eyes: PERRL, conjunctivae normal, anicteric sclerae ENMT: external ear and nose normal, oropharynx normal Respiratory: normal respiratory effort, lungs clear to auscultation Cardiovascular: Rate/Rhythm: regular rate and regular rhythm Gastrointestinal (Abdomen): normal bowel sounds, soft, nontender, no hepatosplenomegaly Musculoskeletal: No pedal edema Neurologic: PERRL, EOMI, accommodation nl, no face palsy, no dysarthria Psychiatric: A+Ox3, euthymic affect Results & Data Results & Data Vital Signs (Past 12 Hours) Vital Signs Temp Pulse Pulse Resp BP Pulse Ox O2 Del Method 02/12/25 11:38 36.7 C 76 18 136/80 94 Room Air 02/12/25 08:00 61 02/12/25 07:24 36.7 C 56 L 16 137/70 91 Room Air 02/12/25 04:11 36.5 C 70 22 137/75 95 Room Air
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
[2025-02-12 16:35] VITALS: PULSE 92
== END 2025-02-12 22:50 | disposition home or self-care (01) | DRG 312 ==
LOC: ED 03:01 → INTOOBSV 05:04 → 2S 05:04